=== PATIENT | male | born 1995 | race American Indian/Alaskan Native ===

== ENCOUNTER 2017-01-17 02:17 | Emergency (ER) | payer BC ==
[2017-01-17 02:17] VITALS: BMI 34.8
[2017-01-17 02:28] VITALS: TEMP 98
--- NOTE | 2017-01-17 02:35 | ED PDOC ---
Arrival/HPI - General Chief Complaint: Abnormal Skin Integrity Time Seen by Provider: 01/17/17 02:26 Historian: Patient - History of Present Illness Narrative History of Present Illness (Text): 01/17/17 02:35 Arnold Aguilar is a 22 year old male who presents to the Emergency department accompanied by mother complaining of small right heel laceration. Patient states prior to arrival he stepped in glass while walking at home and sustained a small right heel laceration. Patient states he believes there may be glass stuck in his right heel. Patient denies any weakness/numbness/tingling in the extremity, other trauma, or any other complaints. Time/Duration: Prior to Arrival Symptom Onset: Sudden Symptom Course: Unchanged Activities at Onset: Light Context: Walking, Home Past Medical History - Provider Review Nursing Documentation Reviewed: Yes - Infectious Disease Hx of Infectious Diseases: None - Tetanus Immunization Tetanus Immunization: Unknown - Cardiac Hx Cardiac Disorders: No - Pulmonary Hx Asthma: Yes - Neurological Hx Neurological Disorder: No - HEENT Hx HEENT Disorder: No - Renal Hx Renal Disorder: No - Endocrine/Metabolic Hx Endocrine Disorders: No - Hematological/Oncological Hx Blood Disorders: No - Integumentary Hx Dermatological Disorder: No - Musculoskeletal/Rheumatological Hx Musculoskeletal Disorders: No - Gastrointestinal Hx Gastrointestinal Disorders: No - Genitourinary/Gynecological Hx Genitourinary Disorders: No - Psychiatric Hx Psychophysiologic Disorder: No Hx Anxiety: Yes Hx Depression: Yes Hx Physical Abuse: No Hx Substance Use: No - Past Surgical History Past Surgical History: No Previous - Anesthesia Hx Anesthesia: No - Suicidal Assessment Feels Threatened In Home Enviroment: No Family/Social History - Physician Review Nursing Documentation Reviewed: Yes Family/Social History: No Known Family HX Smoking Status: Never Smoked Hx Alcohol Use: No Hx Substance Use: No Hx Substance Use Treatment: No Allergies/Home Meds Allergies/Adverse Reactions: Allergies No Known Allergies Allergy (Verified 08/07/15 14:59) Home Medications: Home Meds Medication Instructions Recorded Confirmed Fluticasone/Salmeterol 250/50 08/07/15 08/07/15 [Advair Diskus 250/50] Review of Systems - Physician Review All systems were reviewed & negative as marked: Yes - Review of Systems Constitutional: Normal Eyes: Normal ENT: Normal Respiratory: Normal Cardiovascular: Normal Gastrointestinal: Normal Genitourinary Male: Normal Musculoskeletal: Normal Skin: Laceration (+small right heel laceration) Neurological: Normal Endocrine: Normal Hemo/Lymphatic: Normal Psychiatric: Normal Physical Exam Vital Signs Reviewed: Yes Vital Signs Temp Pulse Resp BP Pulse Ox 01/17/17 05:25 70 16 129/89 100 01/17/17 02:19 98 F 91 H 20 156/83 H 91 L Temperature: Afebrile Blood Pressure: Normal Pulse: Regular Respiratory Rate: Normal Appearance: Positive for: Well-Appearing, Non-Toxic, Comfortable Pain Distress: None Mental Status: Positive for: Alert and Oriented X 3 - Systems Exam Head: Present: Atraumatic, Normocephalic Pupils: Present: PERRL Extroacular Muscles: Present: EOMI Conjunctiva: Present: Normal Lower Extremity: Present: NORMAL PULSES, Normal ROM, Neurovascularly Intact, Capillary Refill < 2 s, Other (less than 0.5 cm laceration to plantar surface of right heel). No: Tenderness, Swelling, Erythema, Deformity, Temperature Abnormalties Neurological: Present: GCS=15, CN II-XII Intact, Speech Normal Skin: Present: Warm, Dry, Normal Color. No: Rashes Psychiatric: Present: Alert, Oriented x 3, Normal Insight, Normal Concentration Medical Decision Making ED Course and Treatment: 01/17/17 02:35 Impression: 22 year old male complaining of small right heel laceration,piece of glass stuck in heel. Differential Diagnosis include but are not limited to: laceration vs. foreign body Plan: -- XR Right Heel -- Reassess and disposition Progress Notes: 01/17/17 03:30 Reviewed radiology, XR Right Heel shows superficial right heel radiopacity. 01/17/17 04:09 PROCEDURE: FOREIGN BODY REMOVAL Performed by the emergency provider Timeout: A timeout to verify the correct patient, procedure, and site was performed immediately prior to the procedure. Indication: Foreign body in right heel. Anesthesia: Lidocaine 1% Preparation: The wound was cleaned with NS and Betadyne. The area was prepped and draped in the usual sterile fashion. Procedure: Sliver of glass was removed using forceps. Post-procedure: Patient tolerated the procedure well with no immediate complications. The foreign body was removed. There was no bleeding. complications. Good closure and hemostasis. The patient tolerated the procedure well and there were no complications. CSM remains intact. Post procedure dressing applied. 01/17/17 05:07 Post foreign body removal XR shows no evidence of foreign body. On re-evaluation, the patient feels better and is in no acute distress. I have discussed the results and plan with the patient, who expresses understanding. Patient in agreement with plan to discharged home. Patient is stable for discharge. Patient was instructed to follow up with physician/clinic in 1-2 days or return if symptoms worsen or new concerning symptoms arise. - RAD Interpretation Radiology Orders: 01/17/17 02:36 HEEL RIGHT [RAD] Stat 01/17/17 04:24 HEEL RIGHT [RAD] Stat Infrastructure Software Engineer: ED Physician - Medication Orders Current Medication Orders: Discontinued Medications Cephalexin Monohydrate (Keflex) 500 mg PO ONCE STA PRN Reason: Protocol Stop: 01/17/17 04:35 Last Admin: 01/17/17 05:10 Dose: 500 MG Tetanus/Reduced Diphtheria/Acell Pertussis (Boostrix Vaccine Inj) 0.5 ml IM .ONCE ONE Stop: 01/17/17 04:35 Last Admin: 01/17/17 05:10 Dose: 0.[address] [facility] Immunization Data Document 01/17/17 05:10 EKEOO (Rec: 01/17/17 05:11 [id number]) Immunization Data Vaccine Lot Number [id number] Vaccine Expiration Date 12/17/18 Site Given Left Deltoid Immunization Units ml - Scribe Statement The provider has reviewed the documentation as recorded by the Chava Ford Provider Attestation: All medical record entries made by the Irmaibraymundo were at my direction and personally dictated by me. I have reviewed the chart and agree that the record accurately reflects my personal performance of the history, physical exam, medical decision making, and the department course for this patient. I have also personally directed, reviewed, and agree with the discharge instructions and disposition. Disposition/Present on Arrival - Present on Arrival Any Indicators Present on Arrival: No History of DVT/PE: No History of Uncontrolled Diabetes: No Urinary Catheter: No History of Decub. Ulcer: No History Surgical Site Infection Following: None - Disposition Have Diagnosis and Disposition been Completed?: Yes Diagnosis: Foreign body foot/toe Disposition: HOSPITALIZED Disposition Time: 04:36 Patient Plan: Discharge Condition: GOOD Discharge Instructions (ExitCare): Soft Tissue Foreign Body (ED) Additional Instructions: Keep area clean and dry/take meds as prescribed/any signs of infection(redness/ swelling/wound discharge/fever) return to the emergency room.Follow up with your doctor Prescriptions: Cephalexin [cephalexin] 500 mg PO BID #14 cap Referrals: Yvonne Cortes MD [Primary Care Provider] - Follow up with primary
[2017-01-17] MEDS ORDERED: TDAP Vaccine 0.5 mL Syr IM ONE (04:34)
[2017-01-17 05:27] VITALS: BP 129/89; PULSE 70; RESP 16; O2SAT 100
--- NOTE | 2017-01-17 08:31 | RAD ---
HISTORY: r/o FB COMPARISON: No prior FINDINGS: BONES: Normal. No fracture. JOINTS: Normal. No osteoarthritis. SOFT TISSUE: Normal. OTHER FINDINGS: 7 millimeter radiodensity in the heel soft tissues compatible with foreign body.. IMPRESSION: 7 millimeter radiodensity in the heel soft tissues compatible with foreign body.
--- NOTE | 2017-01-17 08:32 | RAD ---
HISTORY: s/p FB removal COMPARISON: No prior FINDINGS: BONES: Normal. No fracture. JOINTS: Normal. No osteoarthritis. SOFT TISSUE: Normal. OTHER FINDINGS: None . IMPRESSION: Normal Bone Xray. No foreign body.
== END 2017-01-17 05:27 | disposition short-term general hospital (02) ==
LOC: ED 02:17
DX: S90.851A Superficial foreign body, right foot, initial encounter (principal); W22.8XXA Striking against or struck by other objects, initial encounter; Y92.009 Unspecified place in unspecified non-institutional (private) residence as the place of occurrence of the external cause; Z23 Encounter for immunization